=== PATIENT | female | born 1955 | race Asian ===

== ENCOUNTER 2017-11-27 11:24 | Emergency (ER) | payer OTHER ==
[~2017-11-27] VITALS: Ht 165.1 cm; Wt 55.0 kg
[2017-11-27 12:31] LABS: MEAN CORPUSCULAR HEMOGLOBIN 24.4 pg (27.0-34.8); MEAN CORPUSCULAR HGB CONC 31.1 g/dL (32.4-35.8); MEAN CORPUSCULAR VOLUME 78.6 fL (80-100); MEAN PLATELET VOLUME 7.3 fL (7.4-10.4); PLATELET COUNT 422 x10^3/uL (130-400); RED BLOOD COUNT 3.58 x10^6/uL (3.82-5.3); RED CELL DISTRIBUTION WIDTH 31.2 % (9.6-15.2)
[2017-11-27 12:52] LABS: BASOPHILS % (AUTO) 0 % (0-1); EOSINOPHILS # (AUTO) 0.05 x10^3/uL (0-0.4); EOSINOPHILS % (AUTO) 1 % (1-7); HEMOGRAM NOTE RECHECKED; LYMPHOCYTES # (AUTO) 0.91 x10^3/uL (1-3.4); LYMPHOCYTES % (AUTO) 8 % (22-44); MONOCYTES % (AUTO) 4 % (2-9); NEUTROPHILS % (AUTO) 88 % (42-75)
[2017-11-27 12:56] LABS: ANISOCYTOSIS 2+; MD MORPH REVIEW ONLY; OVALOCYTES 1+; POLYCHROMASIA 1+
[2017-11-27 12:57] LABS: MICROCYTOSIS 1+
[2017-11-27 12:59] LABS: <PLATELET ESTIMATE> ADEQUATE; <PLT MORPHOLOGY> NORMAL PLT MORPH; HYPOCHROMIA 1+
[2017-11-27 13:04] VITALS: BP 135/74
[2017-11-27 13:05] LABS: ALBUMIN 2.1 g/dL (3.4-5.0); ANION GAP 11 mmol/L (5-15); CALCIUM 8.2 mg/dL (8.5-10.1); CHLORIDE 107 mmol/L (98-107)
[2017-11-27 13:09] LABS: ALANINE AMINOTRANSFERASE 16 U/L (12-78); ALKALINE PHOSPHATASE 135 U/L (45-117); BILIRUBIN,TOTAL 0.3 mg/dL (0.2-1.0); CREATININE 0.44 mg/dL (0.55-1.02); TOTAL PROTEIN 6.6 g/dL (6.4-8.2)
== END 2017-11-27 13:52 | disposition home or self-care (01) ==
LOC: ED 13:51
DX: D64.81 Anemia due to antineoplastic chemotherapy (principal); C18.9 Malignant neoplasm of colon, unspecified; C78.7 Secondary malignant neoplasm of liver and intrahepatic bile duct; C78.00 Secondary malignant neoplasm of unspecified lung
CPT/HCPCS: 36415; 80053; 85025; 86850; 86900; 99284

== ENCOUNTER → 2018-03-20 | Outpatient (CLI) | payer OTHER ==
[~2018-03-20] MED LIST: DOCU-131 PO; LEVO25TA2 PO; SPIR25TA PO; SPIR50TA PO
== END | disposition home or self-care (01) ==
LOC: RAD 15:06
PROVIDERS: ATTEND Internal Medicine Hematology & Oncology
DX: C18.9 Malignant neoplasm of colon, unspecified (principal)
CPT/HCPCS: 36569; 76937; 77001; C1751

== ENCOUNTER 2018-03-25 18:57 | Inpatient (IN) | payer OTHER ==
[~2018-03-25] VITALS: Ht 165.1 cm; Wt 41.9 kg
[2018-03-25 20:27] LABS: ALANINE AMINOTRANSFERASE 20 U/L (12-78); ALBUMIN 2.2 g/dL (3.4-5.0); ANION GAP 6 mmol/L (5-15); CALCIUM 8.1 mg/dL (8.5-10.1); CHLORIDE 106 mmol/L (98-107)
[2018-03-25 20:30] LABS: ALKALINE PHOSPHATASE 144 U/L (45-117); BILIRUBIN,TOTAL 0.3 mg/dL (0.2-1.0); TOTAL PROTEIN 6.4 g/dL (6.4-8.2)
[2018-03-25 20:37] LABS: MD YES; MEAN CORPUSCULAR HEMOGLOBIN 26.9 pg (27.0-34.8); MEAN CORPUSCULAR HGB CONC 32.4 g/dL (32.4-35.8); MEAN CORPUSCULAR VOLUME 82.9 fL (80-100); MEAN PLATELET VOLUME 7.1 fL (7.4-10.4); PLATELET COUNT 307 x10^3/uL (130-400); RED BLOOD COUNT 2.67 x10^6/uL (3.82-5.3)
[2018-03-25 20:38] LABS: LYMPH#(MANUAL) 0.37 x10^3/uL (1-3.4); LYMPHS% (MANUAL) 5 % (22-44); MONOS#(MANUAL) 0.07 x10^3/uL (0.3-2.7); MONOS% (MANUAL) 1 % (2-9); SEG#(MANUAL) 6.96 x10^3/uL (1.8-6.8); SEGS% (MANUAL) 94 % (42-75)
[2018-03-25 20:39] LABS: ANISOCYTOSIS 2+; MICROCYTOSIS 1+; OVALOCYTES 1+; POLYCHROMASIA 1+
[2018-03-25 20:42] LABS: ROULEAUX 1+
[2018-03-25 20:43] LABS: HYPOCHROMIA 2+
[2018-03-25 20:47] LABS: SCHISTOCYTES 1+
[2018-03-25 20:53] LABS: <PLATELET ESTIMATE> ADEQUATE; <PLT MORPHOLOGY> NORMAL PLT MORPH
[2018-03-25 21:08] LABS: MICROSCOPIC INDICATED
[2018-03-25 21:09] LABS: CULTURE INDICATED? YES
[2018-03-25 21:31] VITALS: BP 129/69
[2018-03-25 21:36] VITALS: BP 131/72
[2018-03-25 21:53] VITALS: BP 131/72
[2018-03-25] MEDS ORDERED: DEXAMETHASONE 8 MG in SODIUM CHLORIDE 0.9% 50 ML IV ONE (22:00)
[2018-03-25] MEDS ORDERED: SPIR25TA PO (23:19)
[2018-03-25] MEDS ORDERED: LEVO25TA2 PO (23:19)
[2018-03-25 23:26] VITALS: BP 144/73
[2018-03-26] VITALS (10 sets, daily range): BP systolic 118–136; BP diastolic 67–78
[2018-03-26] MEDS ORDERED: TEMAZEPAM 15 MG CAPSULE PO PRN (01:00)
[2018-03-26] MEDS ORDERED: hydrALAzine 20 MG/ML, 1ML IVPush PRN (01:00)
[2018-03-26] MEDS ORDERED: LORazepam 2 MG/ML, 1ML IVPush PRN (01:30)
[2018-03-26] MEDS: DEXAMETHASONE 4 MG/ML, 1ML IVPush SCH ×3 (05:46→18:39)
[2018-03-27] MEDS: DEXAMETHASONE 4 MG/ML, 1ML IVPush SCH ×4 (00:44→20:00)
[2018-03-27 01:10] VITALS: BP 116/65
[2018-03-27 05:28] LABS: ALANINE AMINOTRANSFERASE 18 U/L (12-78); ANION GAP 4 mmol/L (5-15); CALCIUM 8.2 mg/dL (8.5-10.1); CHLORIDE 110 mmol/L (98-107); CREATININE 0.43 mg/dL (0.55-1.02)
[2018-03-27 05:29] LABS: ALKALINE PHOSPHATASE 133 U/L (45-117); BILIRUBIN,TOTAL 0.4 mg/dL (0.2-1.0); TOTAL PROTEIN 6.2 g/dL (6.4-8.2)
[2018-03-27 05:30] LABS: MEAN CORPUSCULAR VOLUME 84.9 fL (80-100); MEAN PLATELET VOLUME 7.5 fL (7.4-10.4); PLATELET COUNT 212 x10^3/uL (130-400); RED BLOOD COUNT 3.78 x10^6/uL (3.82-5.3); RED CELL DISTRIBUTION WIDTH 25.3 % (9.6-15.2)
[2018-03-27 05:50] LABS: BASOPHILS % (AUTO) 0 % (0-1); EOSINOPHILS # (AUTO) 0.01 x10^3/uL (0-0.4); EOSINOPHILS % (AUTO) 0 % (1-7); LYMPHOCYTES # (AUTO) 0.69 x10^3/uL (1-3.4); LYMPHOCYTES % (AUTO) 15 % (22-44); MD SCAN; MONOCYTES # (AUTO) 0.17 x10^3/uL (0.2-0.8); MONOCYTES % (AUTO) 4 % (2-9); NEUTROPHILS # (AUTO) 3.67 x10^3/uL (1.8-6.8); NEUTROPHILS % (AUTO) 81 % (42-75)
[2018-03-27 06:48] VITALS: BP 120/71
[2018-03-27 13:47] VITALS: BP 124/80
[2018-03-27] MEDS: PANTOPRAZOLE 40 MG IV IVPush SCH ×2 (17:08→20:00)
[2018-03-27 20:00] VITALS: BP 128/72
[2018-03-28] MEDS: DEXAMETHASONE 4 MG/ML, 1ML IVPush SCH ×4 (02:37→20:52)
[2018-03-28 03:14] VITALS: BP 129/65
[2018-03-28] MEDS ORDERED: LEVOTHYROXINE 25 MCG TABLET PO SCH (06:00)
[2018-03-28 06:59] VITALS: BP 124/73
[2018-03-28 08:33] LABS: MEAN CORPUSCULAR HEMOGLOBIN 27.9 pg (27.0-34.8); MEAN CORPUSCULAR HGB CONC 32.6 g/dL (32.4-35.8); MEAN CORPUSCULAR VOLUME 85.6 fL (80-100); MEAN PLATELET VOLUME 7.3 fL (7.4-10.4); PLATELET COUNT 221 x10^3/uL (130-400); RED BLOOD COUNT 3.94 x10^6/uL (3.82-5.3)
[2018-03-28 08:35] LABS: ALANINE AMINOTRANSFERASE 20 U/L (12-78); ALBUMIN 2.2 g/dL (3.4-5.0); ANION GAP 5 mmol/L (5-15); CALCIUM 8.4 mg/dL (8.5-10.1); CHLORIDE 108 mmol/L (98-107); CREATININE 0.48 mg/dL (0.55-1.02)
[2018-03-28 08:37] LABS: ALKALINE PHOSPHATASE 143 U/L (45-117); BILIRUBIN,TOTAL 0.4 mg/dL (0.2-1.0); TOTAL PROTEIN 6.4 g/dL (6.4-8.2)
[2018-03-28] MEDS ORDERED: FLUCONAZOLE 100 MG TABLET PO SCH (09:00)
[2018-03-28] MEDS: FLUCONAZOLE 100 MG TABLET PO SCH (09:00)
[2018-03-28] MEDS ORDERED: SPIRONOLACTONE 25 MG TABLET PO SCH (09:00)
[2018-03-28 09:23] LABS: BASOPHILS % (AUTO) 0 % (0-1); EOSINOPHILS # (AUTO) 0.06 x10^3/uL (0-0.4); EOSINOPHILS % (AUTO) 1 % (1-7); LYMPHOCYTES # (AUTO) 0.65 x10^3/uL (1-3.4); LYMPHOCYTES % (AUTO) 7 % (22-44); MD MORPH REVIEW ONLY; MONOCYTES # (AUTO) 0.59 x10^3/uL (0.2-0.8); MONOCYTES % (AUTO) 7 % (2-9); NEUTROPHILS # (AUTO) 7.83 x10^3/uL (1.8-6.8); NEUTROPHILS % (AUTO) 86 % (42-75)
[2018-03-28] MEDS: PANTOPRAZOLE 40 MG IV IVPush SCH ×2 (09:23→20:52)
[2018-03-28 09:26] LABS: ANISOCYTOSIS 2+; ECHINOCYTES 1+; MICROCYTOSIS 1+; POLYCHROMASIA 1+; SCHISTOCYTES 1+
[2018-03-28 09:29] LABS: <PLATELET ESTIMATE> ADEQUATE; <PLT MORPHOLOGY> NORMAL PLT MORPH
[2018-03-28] MEDS ORDERED: GADOBUTROL 10 MMOL/10 ML PFS ONE (13:02)
[2018-03-28 14:25] VITALS: BP 125/75
[2018-03-28] MEDS ORDERED: MANNITOL PMX 20% 500 ML ONE (15:14)
[2018-03-28] MEDS ORDERED: DEXAMETHASONE 4 MG/ML, 5ML ONE (15:14)
[2018-03-28] MEDS ORDERED: CEFUROXIME 1.5 GM ONE (15:14)
[2018-03-28] MEDS ORDERED: BUPIVACAINE/PF-EPI 0.5% 1:200K ONE (15:14)
[2018-03-28] MEDS ORDERED: THROMBIN 5,000 UNIT VIAL TP ONE (15:14)
[2018-03-28] MEDS ORDERED: BACITRACIN 50,000 UNIT ONE (15:15)
[2018-03-28] MEDS ORDERED: BACITRACIN OINT 500U/GM, 15 GM ONE (15:15)
[2018-03-28] MEDS ORDERED: HYDROCORTISONE 100 MG INJ. ONE (15:15)
[2018-03-28] MEDS ORDERED: PROPOFOL 50 ML ONE (15:51)
[2018-03-28] MEDS ORDERED: FENTANYL PF 250 MCG/5ML ONE (15:52)
[2018-03-28] MEDS ORDERED: THROMBIN 20,000 UNIT VIAL TP ONE (17:40)
[2018-03-28] MEDS ORDERED: MIDAZOLAM 1 MG/ML, 2ML IV PRN (19:30)
[2018-03-28] MEDS ORDERED: PROMETHAZINE 25 MG/ML, 1ML IV PRN (19:30)
[2018-03-28] MEDS ORDERED: CEFAZOLIN 1,000 MG IV SCH (19:30)
[2018-03-28] MEDS ORDERED: OXYcodone 5 MG/5 ML ORAL.SOL UDC PO PRN (19:30)
[2018-03-28] MEDS ORDERED: MORPHINE SULFATE 4 MG/ML, 1ML IVPush PRN (19:30)
[2018-03-28] MEDS ORDERED: FENTANYL PF 100 MCG/2ML IV PRN (19:30)
[2018-03-28] MEDS ORDERED: DIPHENHYDRAMINE 50 MG/ML, 1ML IVPush PRN (19:30)
[2018-03-28] MEDS ORDERED: ONDANSETRON ODT 8 MG PO PRN (19:30)
[2018-03-28] MEDS ORDERED: PROMETHAZINE 12.5 MG SUPP PR PRN (19:30)
[2018-03-28] MEDS ORDERED: EPHEDRINE 50 MG/ML, 1ML IM PRN (19:30)
[2018-03-28] MEDS ORDERED: PROMETHAZINE 25 MG SUPP PR PRN (19:30)
[2018-03-28] MEDS: CEFAZOLIN PMX 1GM/50ML 50 ML IV SCH (20:52)
[2018-03-28] MEDS: ONDANSETRON 2MG/ML, 2ML IVPush PRN (21:11)
[2018-03-29] MEDS: DEXAMETHASONE 4 MG/ML, 1ML IVPush SCH ×4 (02:05→19:49)
[2018-03-29] MEDS: CEFAZOLIN PMX 1GM/50ML 50 ML IV SCH (04:28)
[2018-03-29] MEDS: ONDANSETRON 2MG/ML, 2ML IVPush PRN ×2 (04:28→13:48)
[2018-03-29 04:58] LABS: MEAN CORPUSCULAR HEMOGLOBIN 28.4 pg (27.0-34.8); MEAN CORPUSCULAR HGB CONC 32.6 g/dL (32.4-35.8); MEAN CORPUSCULAR VOLUME 86.9 fL (80-100); MEAN PLATELET VOLUME 7.5 fL (7.4-10.4); PLATELET COUNT 181 x10^3/uL (130-400); RED BLOOD COUNT 3.55 x10^6/uL (3.82-5.3); RED CELL DISTRIBUTION WIDTH 26.6 % (9.6-15.2)
[2018-03-29 05:07] LABS: ALANINE AMINOTRANSFERASE 25 U/L (12-78); ALBUMIN 2.2 g/dL (3.4-5.0); ANION GAP 9 mmol/L (5-15); CALCIUM 7.8 mg/dL (8.5-10.1); CHLORIDE 108 mmol/L (98-107); CREATININE 0.49 mg/dL (0.55-1.02)
[2018-03-29 05:09] LABS: ALKALINE PHOSPHATASE 129 U/L (45-117); BILIRUBIN,TOTAL 0.3 mg/dL (0.2-1.0); TOTAL PROTEIN 5.7 g/dL (6.4-8.2)
[2018-03-29 06:27] LABS: BASOPHILS % (AUTO) 0 % (0-1); EOSINOPHILS % (AUTO) 0 % (1-7); LYMPHOCYTES # (AUTO) 0.67 x10^3/uL (1-3.4); LYMPHOCYTES % (AUTO) 6 % (22-44); MD SCAN; MONOCYTES # (AUTO) 0.61 x10^3/uL (0.2-0.8); MONOCYTES % (AUTO) 5 % (2-9); NEUTROPHILS # (AUTO) 10.18 x10^3/uL (1.8-6.8); NEUTROPHILS % (AUTO) 89 % (42-75)
[2018-03-29] MEDS: LEVOTHYROXINE 25 MCG TABLET PO SCH (06:35)
[2018-03-29] MEDS: PROMETHAZINE 25 MG/ML, 1ML IM PRN (08:16)
[2018-03-29] MEDS: SPIRONOLACTONE 25 MG TABLET PO SCH (09:04)
[2018-03-29] MEDS: PANTOPRAZOLE 40 MG IV IVPush SCH ×2 (09:04→19:49)
[2018-03-29] MEDS: FLUCONAZOLE 100 MG TABLET PO SCH (09:58)
[2018-03-29] MEDS ORDERED: GADOBUTROL 7.5 MMOL/7.5 ML PFS ONE (10:38)
[2018-03-29] MEDS: CEFTRIAXONE 1,000 MG in SODIUM CHLORIDE 0.9% 50 ML IV SCH (12:10)
[2018-03-29 19:19] VITALS: BP 117/71
[2018-03-30 02:00] VITALS: BP 121/72
[2018-03-30] MEDS: DEXAMETHASONE 4 MG/ML, 1ML IVPush SCH ×4 (02:04→22:55)
[2018-03-30] MEDS: LEVOTHYROXINE 25 MCG TABLET PO SCH (05:05)
[2018-03-30] MEDS: DOCUSATE 100 MG CAPSULE PO PRN (05:05)
[2018-03-30 05:56] LABS: CHLORIDE 107 mmol/L (98-107)
[2018-03-30 06:08] LABS: ALANINE AMINOTRANSFERASE 26 U/L (12-78); ALBUMIN 2.2 g/dL (3.4-5.0); ALKALINE PHOSPHATASE 140 U/L (45-117); ANION GAP 5 mmol/L (5-15); BILIRUBIN,TOTAL 0.5 mg/dL (0.2-1.0); CREATININE 0.53 mg/dL (0.55-1.02); TOTAL PROTEIN 6.3 g/dL (6.4-8.2)
[2018-03-30 06:19] LABS: MEAN CORPUSCULAR HEMOGLOBIN 27.6 pg (27.0-34.8); MEAN CORPUSCULAR HGB CONC 32.2 g/dL (32.4-35.8); MEAN CORPUSCULAR VOLUME 85.7 fL (80-100); MEAN PLATELET VOLUME 8.3 fL (7.4-10.4); PLATELET COUNT 209 x10^3/uL (130-400); RED CELL DISTRIBUTION WIDTH 26.7 % (9.6-15.2)
[2018-03-30 06:53] LABS: BASOPHILS % (AUTO) 0 % (0-1); EOSINOPHILS % (AUTO) 0 % (1-7); LYMPHOCYTES # (AUTO) 0.59 x10^3/uL (1-3.4); LYMPHOCYTES % (AUTO) 5 % (22-44); MD SCAN; MONOCYTES # (AUTO) 0.48 x10^3/uL (0.2-0.8); MONOCYTES % (AUTO) 4 % (2-9); NEUTROPHILS # (AUTO) 11.54 x10^3/uL (1.8-6.8); NEUTROPHILS % (AUTO) 92 % (42-75)
[2018-03-30 07:33] VITALS: BP 132/72
[2018-03-30] MEDS: FLUCONAZOLE 100 MG TABLET PO SCH ×2 (09:00→10:40)
[2018-03-30] MEDS: SPIRONOLACTONE 25 MG TABLET PO SCH (10:40)
[2018-03-30] MEDS: PANTOPRAZOLE 40 MG IV IVPush SCH ×2 (10:40→20:38)
[2018-03-30] MEDS: CEFTRIAXONE 1,000 MG in SODIUM CHLORIDE 0.9% 50 ML IV SCH (12:08)
[2018-03-30 13:40] VITALS: BP 124/74
[2018-03-30 19:21] VITALS: BP 109/65
[2018-03-31 01:45] VITALS: BP 127/77
[2018-03-31] MEDS: DEXAMETHASONE 4 MG/ML, 1ML IVPush SCH ×3 (05:03→20:29)
[2018-03-31] MEDS: LEVOTHYROXINE 25 MCG TABLET PO SCH (05:04)
[2018-03-31 08:13] VITALS: BP 129/67
[2018-03-31] MEDS: PANTOPRAZOLE 40 MG IV IVPush SCH ×2 (08:23→20:29)
[2018-03-31] MEDS: FLUCONAZOLE 100 MG TABLET PO SCH (08:24)
[2018-03-31] MEDS: SPIRONOLACTONE 25 MG TABLET PO SCH (08:24)
[2018-03-31] MEDS: DOCUSATE 100 MG CAPSULE PO PRN (11:10)
[2018-03-31] MEDS: CEFTRIAXONE 1,000 MG in SODIUM CHLORIDE 0.9% 50 ML IV SCH (11:11)
[2018-03-31 17:00] VITALS: BP 126/69
[2018-03-31 19:20] VITALS: BP 117/69
[2018-04-01 01:59] VITALS: BP 120/68
[2018-04-01 05:28] LABS: MEAN CORPUSCULAR HGB CONC 32.4 g/dL (32.4-35.8); MEAN CORPUSCULAR VOLUME 86.3 fL (80-100); MEAN PLATELET VOLUME 7.8 fL (7.4-10.4); PLATELET COUNT 287 x10^3/uL (130-400); RED BLOOD COUNT 3.72 x10^6/uL (3.82-5.3); RED CELL DISTRIBUTION WIDTH 25.7 % (9.6-15.2)
[2018-04-01 05:37] LABS: CHLORIDE 105 mmol/L (98-107)
[2018-04-01 05:44] LABS: ALANINE AMINOTRANSFERASE 30 U/L (12-78); ALBUMIN 2.3 g/dL (3.4-5.0); ALKALINE PHOSPHATASE 169 U/L (45-117); ANION GAP 9 mmol/L (5-15); BILIRUBIN,TOTAL 0.3 mg/dL (0.2-1.0); CALCIUM 8.1 mg/dL (8.5-10.1); CREATININE 0.45 mg/dL (0.55-1.02); TOTAL PROTEIN 6.2 g/dL (6.4-8.2)
[2018-04-01 06:11] LABS: BASOPHILS % (AUTO) 0 % (0-1); EOSINOPHILS # (AUTO) 0.05 x10^3/uL (0-0.4); EOSINOPHILS % (AUTO) 0 % (1-7); LYMPHOCYTES # (AUTO) 0.86 x10^3/uL (1-3.4); LYMPHOCYTES % (AUTO) 8 % (22-44); MD SCAN; MONOCYTES # (AUTO) 0.68 x10^3/uL (0.2-0.8); MONOCYTES % (AUTO) 6 % (2-9); NEUTROPHILS % (AUTO) 86 % (42-75)
[2018-04-01 07:07] VITALS: BP 146/79
[2018-04-01] MEDS: LEVOTHYROXINE 25 MCG TABLET PO SCH (09:55)
[2018-04-01] MEDS: PANTOPRAZOLE 40 MG IV IVPush SCH (09:56)
[2018-04-01] MEDS: DEXAMETHASONE 4 MG/ML, 1ML IVPush SCH (09:56)
[2018-04-01] MEDS: FLUCONAZOLE 100 MG TABLET PO SCH (09:56)
[2018-04-01] MEDS: SPIRONOLACTONE 25 MG TABLET PO SCH (09:56)
[2018-04-01] MEDS: NEUTRA PHOS K 250 MG TABLET PO SCH ×2 (10:09→21:59)
[2018-04-01] MEDS: CEFTRIAXONE 1,000 MG in SODIUM CHLORIDE 0.9% 50 ML IV SCH (10:49)
[2018-04-01 16:35] VITALS: BP 154/80
[2018-04-01 20:43] VITALS: BP 128/76
[2018-04-01] MEDS: DEXAMETHASONE 4 MG TABLET PO SCH (21:59)
[2018-04-01] MEDS: PANTOPROZOLE 40MG TABLET PO SCH (21:59)
[2018-04-02 01:58] VITALS: BP 116/71
[2018-04-02] MEDS: LEVOTHYROXINE 25 MCG TABLET PO SCH (06:07)
[2018-04-02 07:02] LABS: ALANINE AMINOTRANSFERASE 30 U/L (12-78); ALBUMIN 2.3 g/dL (3.4-5.0); ANION GAP 10 mmol/L (5-15); CALCIUM 7.9 mg/dL (8.5-10.1); CHLORIDE 104 mmol/L (98-107); CREATININE 0.42 mg/dL (0.55-1.02)
[2018-04-02 07:04] LABS: ALKALINE PHOSPHATASE 182 U/L (45-117); BILIRUBIN,TOTAL 0.4 mg/dL (0.2-1.0); TOTAL PROTEIN 6.1 g/dL (6.4-8.2)
[2018-04-02 07:16] LABS: MEAN CORPUSCULAR HEMOGLOBIN 26.7 pg (27.0-34.8); MEAN CORPUSCULAR HGB CONC 31.8 g/dL (32.4-35.8); MEAN CORPUSCULAR VOLUME 83.9 fL (80-100); MEAN PLATELET VOLUME 7.5 fL (7.4-10.4); PLATELET COUNT 379 x10^3/uL (130-400); RED BLOOD COUNT 3.95 x10^6/uL (3.82-5.3); RED CELL DISTRIBUTION WIDTH 25.6 % (9.6-15.2)
[2018-04-02 08:31] LABS: MD YES
[2018-04-02 08:34] LABS: LYMPH#(MANUAL) 3.36 x10^3/uL (1-3.4); LYMPHS% (MANUAL) 28 % (22-44); SEG#(MANUAL) 8.64 x10^3/uL (1.8-6.8); SEGS% (MANUAL) 72 % (42-75)
[2018-04-02 08:35] LABS: <PLATELET ESTIMATE> ADEQUATE; <PLT MORPHOLOGY> NORMAL PLT MORPH; ANISOCYTOSIS 2+; HYPOCHROMIA 1+; MICROCYTOSIS 1+
[2018-04-02 08:45] VITALS: BP 120/72
[2018-04-02] MEDS: SPIRONOLACTONE 25 MG TABLET PO SCH ×2 (09:00→20:52)
[2018-04-02] MEDS: FLUCONAZOLE 100 MG TABLET PO SCH (09:14)
[2018-04-02] MEDS: DEXAMETHASONE 4 MG TABLET PO SCH ×2 (09:14→20:52)
[2018-04-02] MEDS: PANTOPROZOLE 40MG TABLET PO SCH ×2 (09:14→18:44)
[2018-04-02] MEDS: CEFTRIAXONE 1,000 MG in SODIUM CHLORIDE 0.9% 50 ML IV SCH (10:19)
[2018-04-02 18:58] VITALS: BP 122/73
[2018-04-03 01:58] VITALS: BP 136/82
[2018-04-03] MEDS: LEVOTHYROXINE 25 MCG TABLET PO SCH (04:53)
[2018-04-03 05:13] LABS: MEAN CORPUSCULAR HEMOGLOBIN 27.3 pg (27.0-34.8); MEAN CORPUSCULAR VOLUME 85.2 fL (80-100); MEAN PLATELET VOLUME 7.7 fL (7.4-10.4); PLATELET COUNT 278 x10^3/uL (130-400); RED BLOOD COUNT 3.36 x10^6/uL (3.82-5.3); RED CELL DISTRIBUTION WIDTH 26.3 % (9.6-15.2)
[2018-04-03 05:24] LABS: ALANINE AMINOTRANSFERASE 30 U/L (12-78); ALBUMIN 2.2 g/dL (3.4-5.0); ANION GAP 8 mmol/L (5-15); CALCIUM 8.1 mg/dL (8.5-10.1); CHLORIDE 106 mmol/L (98-107); CREATININE 0.38 mg/dL (0.55-1.02)
[2018-04-03 05:27] LABS: ALKALINE PHOSPHATASE 166 U/L (45-117); BILIRUBIN,TOTAL 0.3 mg/dL (0.2-1.0); TOTAL PROTEIN 5.8 g/dL (6.4-8.2)
[2018-04-03 06:00] LABS: BASOPHILS % (AUTO) 0 % (0-1); EOSINOPHILS # (AUTO) 0.12 x10^3/uL (0-0.4); EOSINOPHILS % (AUTO) 1 % (1-7); LYMPHOCYTES # (AUTO) 0.44 x10^3/uL (1-3.4); LYMPHOCYTES % (AUTO) 4 % (22-44); MD SCAN; MONOCYTES % (AUTO) 4 % (2-9); NEUTROPHILS # (AUTO) 9.42 x10^3/uL (1.8-6.8); NEUTROPHILS % (AUTO) 91 % (42-75)
[2018-04-03 06:45] VITALS: BP 149/80
[2018-04-03] MEDS: FLUCONAZOLE 100 MG TABLET PO SCH (08:44)
[2018-04-03] MEDS: PANTOPROZOLE 40MG TABLET PO SCH ×2 (08:45→18:32)
[2018-04-03] MEDS: DEXAMETHASONE 4 MG TABLET PO SCH ×2 (08:45→19:47)
[2018-04-03 12:07] VITALS: BP 131/80
[2018-04-03] MEDS: SPIRONOLACTONE 25 MG TABLET PO SCH (18:32)
[2018-04-03 19:45] VITALS: BP 122/76
[2018-04-04 00:35] VITALS: BP 143/81
[2018-04-04 06:54] VITALS: BP 137/73
[2018-04-04] MEDS: FLUCONAZOLE 100 MG TABLET PO SCH (09:00)
[2018-04-04] MEDS: PANTOPROZOLE 40MG TABLET PO SCH ×2 (09:15→18:19)
[2018-04-04] MEDS: DEXAMETHASONE 4 MG TABLET PO SCH ×2 (09:15→20:32)
[2018-04-04] MEDS: LEVOTHYROXINE 25 MCG TABLET PO SCH (09:15)
[2018-04-04] MEDS ORDERED: CEFTRIAXONE 1,000 MG in SODIUM CHLORIDE 0.9% 50 ML IV SCH (10:30)
[2018-04-04] MEDS ORDERED: MAALOX/HYOSCYAMINE/LIDOCAINE 45 ML BTL PO PRN (11:00)
[2018-04-04] MEDS ORDERED: SIMETHICONE DROPS 40 MG/0.6 ML BOTTLE PO PRN (11:00)
[2018-04-04] MEDS ORDERED: MAALOX/HYOSCYAMINE/LIDOCAINE 45 ML BTL PO ONE (11:00)
[2018-04-04] MEDS: SIMETHICONE DROPS 40 MG/0.6 ML BOTTLE PO SCH ×4 (11:00→20:31)
[2018-04-04 11:24] LABS: ANION GAP 11 mmol/L (5-15); CALCIUM 8.4 mg/dL (8.5-10.1); CHLORIDE 102 mmol/L (98-107); CREATININE 0.53 mg/dL (0.55-1.02)
[2018-04-04 11:29] LABS: TROPONIN I < 0.015 ng/mL (0.000-0.045)
[2018-04-04 20:38] VITALS: BP 122/72
[2018-04-04] MEDS ORDERED: LIDOCAINE-MPF 2%, 2ML ONE (22:14)
[2018-04-05 01:23] VITALS: BP 132/72
[2018-04-05] MEDS: LEVOTHYROXINE 25 MCG TABLET PO SCH (05:12)
[2018-04-05 05:41] LABS: MEAN CORPUSCULAR HEMOGLOBIN 27.6 pg (27.0-34.8); MEAN CORPUSCULAR HGB CONC 32.5 g/dL (32.4-35.8); MEAN PLATELET VOLUME 7.2 fL (7.4-10.4); PLATELET COUNT 324 x10^3/uL (130-400); RED CELL DISTRIBUTION WIDTH 25.8 % (9.6-15.2)
[2018-04-05 05:50] LABS: ALBUMIN 2.2 g/dL (3.4-5.0); ANION GAP 8 mmol/L (5-15); CALCIUM 7.9 mg/dL (8.5-10.1); CHLORIDE 102 mmol/L (98-107)
[2018-04-05 05:55] LABS: ALANINE AMINOTRANSFERASE 38 U/L (12-78); ALKALINE PHOSPHATASE 201 U/L (45-117); BILIRUBIN,TOTAL 0.4 mg/dL (0.2-1.0); CREATININE 0.33 mg/dL (0.55-1.02)
[2018-04-05 06:22] LABS: BASOPHILS % (AUTO) 0 % (0-1); EOSINOPHILS # (AUTO) 0.09 x10^3/uL (0-0.4); EOSINOPHILS % (AUTO) 1 % (1-7); LYMPHOCYTES # (AUTO) 0.61 x10^3/uL (1-3.4); LYMPHOCYTES % (AUTO) 6 % (22-44); MD SCAN; MONOCYTES # (AUTO) 0.74 x10^3/uL (0.2-0.8); MONOCYTES % (AUTO) 7 % (2-9); NEUTROPHILS # (AUTO) 8.86 x10^3/uL (1.8-6.8); NEUTROPHILS % (AUTO) 86 % (42-75)
[2018-04-05 06:36] VITALS: BP 110/59
[2018-04-05] MEDS: SIMETHICONE DROPS 40 MG/0.6 ML BOTTLE PO SCH ×4 (08:00→21:00)
[2018-04-05] MEDS: FLUCONAZOLE 100 MG TABLET PO SCH (08:13)
[2018-04-05] MEDS: PANTOPROZOLE 40MG TABLET PO SCH ×2 (08:13→20:08)
[2018-04-05] MEDS: DEXAMETHASONE 4 MG TABLET PO SCH ×2 (08:14→20:08)
[2018-04-05] MEDS: SPIRONOLACTONE 50 MG TABLET PO SCH (08:14)
[2018-04-05] MEDS ORDERED: SPIRONOLACTONE 25 MG TABLET PO SCH (09:00)
[2018-04-05 14:23] VITALS: BP 118/65
[2018-04-05 20:06] VITALS: BP 132/71
[2018-04-06 00:22] VITALS: BP 115/64
[2018-04-06] MEDS: LEVOTHYROXINE 25 MCG TABLET PO SCH (06:16)
[2018-04-06 06:41] VITALS: BP 111/7
[2018-04-06] MEDS: PANTOPROZOLE 40MG TABLET PO SCH ×2 (08:58→17:00)
[2018-04-06] MEDS: SPIRONOLACTONE 50 MG TABLET PO SCH (08:58)
[2018-04-06] MEDS: FLUCONAZOLE 100 MG TABLET PO SCH (08:59)
[2018-04-06] MEDS: SIMETHICONE DROPS 40 MG/0.6 ML BOTTLE PO SCH ×4 (08:59→21:00)
[2018-04-06] MEDS: DEXAMETHASONE 4 MG TABLET PO SCH (08:59)
[2018-04-06 12:03] VITALS: BP 122/78
[2018-04-06 18:36] VITALS: BP 115/59
[2018-04-06 19:48] VITALS: BP 115/72
[2018-04-06] MEDS: DEXAMETHASONE 1 MG TABLET PO SCH (19:52)
[2018-04-07 01:30] VITALS: BP 127/71
[2018-04-07] MEDS: LEVOTHYROXINE 25 MCG TABLET PO SCH (05:00)
[2018-04-07] MEDS: PANTOPROZOLE 40MG TABLET PO SCH ×2 (07:30→15:00)
[2018-04-07] MEDS: SIMETHICONE DROPS 40 MG/0.6 ML BOTTLE PO SCH ×4 (08:00→21:00)
[2018-04-07 08:07] VITALS: BP 124/75
[2018-04-07] MEDS: DEXAMETHASONE 1 MG TABLET PO SCH ×2 (09:00→14:59)
[2018-04-07] MEDS: FLUCONAZOLE 100 MG TABLET PO SCH (09:01)
[2018-04-07] MEDS: SPIRONOLACTONE 50 MG TABLET PO SCH (09:33)
[2018-04-07 12:19] VITALS: BP 127/71
[2018-04-07 19:47] VITALS: BP 121/68
[2018-04-07 23:56] VITALS: BP 114/73
[2018-04-08] MEDS: LEVOTHYROXINE 25 MCG TABLET PO SCH (04:12)
[2018-04-08 04:28] VITALS: BP 98/56
[2018-04-08 07:25] VITALS: BP 127/85
[2018-04-08] MEDS: SIMETHICONE DROPS 40 MG/0.6 ML BOTTLE PO SCH ×4 (08:00→20:32)
[2018-04-08] MEDS ORDERED: SPIR50TA PO (10:31)
[2018-04-08] MEDS: FLUCONAZOLE 100 MG TABLET PO SCH (11:27)
[2018-04-08] MEDS: SPIRONOLACTONE 50 MG TABLET PO SCH (11:30)
[2018-04-08] MEDS: PANTOPROZOLE 40MG TABLET PO SCH ×2 (11:33→19:47)
[2018-04-08] MEDS: DEXAMETHASONE 1 MG TABLET PO SCH ×2 (11:34→19:48)
[2018-04-08 14:00] VITALS: BP 121/69
[2018-04-08 20:10] VITALS: BP 124/76
[2018-04-08] MEDS ORDERED: DEXAMETHASONE 1 MG TABLET PO SCH (21:00)
[2018-04-09 02:04] VITALS: BP 110/63
[2018-04-09] MEDS: LEVOTHYROXINE 25 MCG TABLET PO SCH (05:56)
[2018-04-09 06:53] VITALS: BP 109/68
[2018-04-09] MEDS: SIMETHICONE DROPS 40 MG/0.6 ML BOTTLE PO SCH ×4 (08:00→21:00)
[2018-04-09] MEDS: DEXAMETHASONE 1 MG TABLET PO SCH (08:17)
[2018-04-09] MEDS: FLUCONAZOLE 100 MG TABLET PO SCH (08:17)
[2018-04-09] MEDS: SPIRONOLACTONE 50 MG TABLET PO SCH (08:17)
[2018-04-09] MEDS: PANTOPROZOLE 40MG TABLET PO SCH ×2 (08:17→20:59)
[2018-04-09] MEDS ORDERED: ALUMINUM/MAG/SIMETHICONE 30 ML UDC PO PRN (18:00)
[2018-04-09 19:04] VITALS: BP 114/62
[2018-04-10] MEDS: OXYcodone/APAP 5/325MG TABLET PO PRN ×2 (01:39→10:15)
[2018-04-10 01:47] VITALS: BP 118/77
[2018-04-10] MEDS: ONDANSETRON 2MG/ML, 2ML IVPush PRN ×2 (01:57→01:58)
[2018-04-10] MEDS: LEVOTHYROXINE 25 MCG TABLET PO SCH (06:00)
[2018-04-10 06:47] VITALS: BP 112/69
[2018-04-10] MEDS: PROMETHAZINE 25 MG/ML, 1ML IM PRN (08:20)
[2018-04-10] MEDS: PANTOPROZOLE 40MG TABLET PO SCH (08:29)
[2018-04-10] MEDS: SPIRONOLACTONE 50 MG TABLET PO SCH ×2 (08:30→15:50)
[2018-04-10] MEDS: SIMETHICONE DROPS 40 MG/0.6 ML BOTTLE PO SCH ×2 (08:30→13:19)
[2018-04-10] MEDS: FLUCONAZOLE 100 MG TABLET PO SCH (08:30)
[2018-04-10] MEDS ORDERED: DEXAMETHASONE 1 MG TABLET PO SCH ×2 (09:00→10:21)
[2018-04-10] MEDS ORDERED: FLUCONAZOLE 100 MG TABLET PO SCH (10:21)
[2018-04-10] MEDS ORDERED: SENNA/DOCUSATE TABLET PO SCH (12:00)
[2018-04-10 12:34] VITALS: BP 110/66
[2018-04-10] MEDS: DOCUSATE 100 MG CAPSULE PO PRN (15:47)
[2018-04-10] MEDS ORDERED: DOCU-131 PO (16:02)
[2018-04-11] MEDS ORDERED: DEXAMETHASONE 1 MG TABLET PO SCH (09:00)
== END 2018-04-10 17:17 | disposition short-term general hospital (02) | DRG 25 ==
LOC: ED 21:48 → EDIP 21:53 → 3NW 22:53 → ED 22:55 → CCU 03-28 19:59 → 3NW 03-29 13:44
PROVIDERS: ADMIT Internal Medicine; ATTEND Internal Medicine
PROC: 30233N1 Transfusion of Nonautologous Red Blood Cells into Peripheral Vein, Percutaneous Approach (ICD-10-PCS; 2018-03-25)
PROC: 00B70ZZ Excision of Cerebral Hemisphere, Open Approach (ICD-10-PCS; principal; 2018-03-28 15:30)
PROC: 0W9G3ZZ Drainage of Peritoneal Cavity, Percutaneous Approach (ICD-10-PCS; 2018-04-05)
DX: C79.31 Secondary malignant neoplasm of brain (principal); E43 Unspecified severe protein-calorie malnutrition; C18.9 Malignant neoplasm of colon, unspecified; C78.1 Secondary malignant neoplasm of mediastinum; J90 Pleural effusion, not elsewhere classified; Z68.1 Body mass index [BMI] 19.9 or less, adult; C78.7 Secondary malignant neoplasm of liver and intrahepatic bile duct; D64.81 Anemia due to antineoplastic chemotherapy; B37.9 Candidiasis, unspecified; E03.9 Hypothyroidism, unspecified; T45.1X5A Adverse effect of antineoplastic and immunosuppressive drugs, initial encounter; Z51.5 Encounter for palliative care; Z80.0 Family history of malignant neoplasm of digestive organs; Z87.81 Personal history of (healed) traumatic fracture
CPT/HCPCS: 36415; 36430; 49083; 70450; 70552; 70553; 71045; 74018; 76705; 80048; 80053; 81001; 82607; 83735; 84100; 84484; 85014; 85018; 85025; 86850; 86900; 86923; 87077; 87081; 87086; 87186; 88112; 88305; 93005; A9585; C1713; G0378; J0690; J0696; J0697; J1100; J2405; J2550; J2704; J3010; J3490; 92523-GN; A4648; C1781; C9113; J1720; P9016

== ENCOUNTER → 2018-04-11 | Outpatient (CLI) | payer OTHER | END | disposition home or self-care (01) | LOC: ROC 08:17 | PROVIDERS: ATTEND Radiology Radiation Oncology | DX: C79.31 Secondary malignant neoplasm of brain (principal); C18.9 Malignant neoplasm of colon, unspecified | CPT/HCPCS: 99213; G0463 ==